=== PATIENT | female | born 1970 | race Caucasian/White ===

== ENCOUNTER 2021-12-09 08:40 | Inpatient (IN) | payer OTHER ==
[~2021-12-09] VITALS: Ht 154.9 cm; Wt 129.9 kg
[~2021-12-09 08:40] MED LIST: DUONEB 2.5-0.5M1 AMP INH; PREDNISONE 20MG20 MG PO; PROAIR HFA8.5 GM INH; ZESTRIL5 MG PO
[2021-12-09 09:08] LABS: BASOPHIL 0.5 % (0-2); EOSINOPHIL 0.7 % (0-5); HCT 44.3 % (37.0-47.0); HGB 14.5 g/dl (12.5-16.0); LYMPHOCYTE 23.1 % (15-48); MCH 29.5 pg (25.0-31.0); MCHC 32.7 g/dL (32.0-36.0); MCV 90.2 fL (78.0-100.0); MONOCYTE 7.5 % (0-12); MPV 10.5 fL (6.0-9.5); NEUTROPHIL 67.7 % (41-80); NRBC 0; PLT 217 K/uL (150-400); RBC 4.91 M/uL (4.20-5.40); RDW 13.2 % (11.5-14.0); WBC 8.1 K/uL (4.0-10.5)
[2021-12-09 09:46] LABS: CORONAVIRUS 2019 SARS-COV-2 NEGATIVE (NEGATIVE); INFLUENZA A NAA NEGATIVE (NEGATIVE)
[2021-12-09 10:31] LABS: ALBUMIN 3.4 g/dL (3.4-5.0); BILIRUBIN - TOTAL 0.4 mg/dL (0.2-1.0); BUN/CREAT RATIO (CALC) 13.4 RATIO; CREATININE 0.97 mg/dL (0.51-0.95); GLOBULIN (CALCULATION) 4.5 g/dL; POTASSIUM 3.8 mmol/L (3.5-5.1); TOTAL PROTEIN 7.9 g/dL (6.4-8.2)
[2021-12-09] MEDS ORDERED: HYDROCHLOROTHIA50 MG PO (16:15)
[2021-12-09] MEDS ORDERED: LISINOPRIL5 MG PO (16:15)
[2021-12-09] MEDS ORDERED: OMEPRAZOLE40 MG PO (16:16)
[2021-12-09] MEDS ORDERED: ROSUVASTATIN CA10 MG PO (16:16)
[2021-12-09] MEDS ORDERED: ATARAX25 MG PO (16:18)
[2021-12-10 06:37] LABS: BASOPHIL 0.3 % (0-2); EOSINOPHIL 0 % (0-5); HCT 41.6 % (37.0-47.0); HGB 13.2 g/dl (12.5-16.0); LYMPHOCYTE 16.8 % (15-48); MCH 29.2 pg (25.0-31.0); MCHC 31.7 g/dL (32.0-36.0); MONOCYTE 8.2 % (0-12); MPV 10.4 fL (6.0-9.5); NEUTROPHIL 73.9 % (41-80); NRBC 0; PLT 208 K/uL (150-400); RBC 4.52 M/uL (4.20-5.40); RDW 13.1 % (11.5-14.0); WBC 7.8 K/uL (4.0-10.5)
[2021-12-10 07:22] LABS: ALBUMIN 3.1 g/dL (3.4-5.0); BILIRUBIN - TOTAL 0.2 mg/dL (0.2-1.0); C-REACTIVE PROTEIN 6.2 mg/dL (<=0.90); GLOBULIN (CALCULATION) 4.4 g/dL; POTASSIUM 3.9 mmol/L (3.5-5.1); TOTAL PROTEIN 7.5 g/dL (6.4-8.2)
--- NOTE | 2021-12-10 12:25 | NUR ---
12/10/21 Ms. Pollock lives at home with her spouse, daughter, son-in-law, and granddaughter. They are able to meet their financial obligations. - Ms. Pollock has a rw which she does not use. - A referral was made to [facility] per patient choice for a nebulizer and 02 at 6 L.
[2021-12-10] MEDS ORDERED: SYMBICORT 80-10.2 GM INH (12:27)
[2021-12-10] MEDS ORDERED: VENTOLIN HFA IN18 GM INH (12:27)
[2021-12-10] MEDS ORDERED: VENTOLIN (2.5 MG/3 M INH (12:27)
[2021-12-10] MEDS ORDERED: LEVAQUIN500 MG PO (12:27)
[2021-12-10] MEDS ORDERED: DECADRON4 MG PO (12:32)
--- NOTE | 2021-12-10 14:18 | NUR ---
PT STABLE AT TIME OF DISCHARGE. DISCHARGE INSTRUCTIONS GIVEN. IV REMOVED. HOME O2 DELIVERED AND SET UP. ENCOURAGED TO FOLLOW UP [facility] [employer], USE ISB, AND NO SMOKING IN HOME.
== END 2021-12-10 13:45 | disposition home or self-care (01) | DRG 871 ==
LOC: FER 08:40 → FTCU 12:38
PROVIDERS: Emergency Medicine; Nurse Practitioner; ADMIT Internal Medicine
DX: A41.9 Sepsis, unspecified organism (principal); J18.9 Pneumonia, unspecified organism; J96.01 Acute respiratory failure with hypoxia; J44.1 Chronic obstructive pulmonary disease with (acute) exacerbation; J44.0 Chronic obstructive pulmonary disease with (acute) lower respiratory infection; Z68.43 Body mass index [BMI] 50.0-59.9, adult; R65.20 Severe sepsis without septic shock; Z20.822 Contact with and (suspected) exposure to COVID-19; R91.1 Solitary pulmonary nodule; I10 Essential (primary) hypertension; E66.9 Obesity, unspecified; F17.210 Nicotine dependence, cigarettes, uncomplicated; F41.9 Anxiety disorder, unspecified; Z90.49 Acquired absence of other specified parts of digestive tract; Z90.710 Acquired absence of both cervix and uterus; Z83.6 Family history of other diseases of the respiratory system; Z88.1 Allergy status to other antibiotic agents; Z28.310 Unvaccinated for COVID-19; Z79.899 Other long term (current) drug therapy
CPT/HCPCS: 36415; 36600; 71045; 71275; 80053; 82803; 83605; 83615; 83880; 84145; 84484; 85025; 85379; 86140; 87040; 93005; 94010; 94640; 94664; J1100; J1650; J1956; J7050; Q9967; U0002